=== PATIENT | male | born 1950 | race Caucasian/White ===

== ENCOUNTER 2019-05-05 10:43 | Day surgery (SDC) | payer MEDICARE, BC ==
[~2019-05-05] VITALS: Ht 177.8 cm; Wt 107.1 kg
[2019-05-05] VITALS (25 sets, daily range): BP systolic 118–156; BP diastolic 64–90; PULSE 66–89; RESP 14–25; Ht 177.8 cm; Wt 107.1 kg
[2019-05-05] MEDS: TRANEXAMIC ACID 1GM/100ML(PMX) 100 ML PRE-OP X1 IVPB ONE ×2 (08:02→08:21)
[2019-05-05] MEDS: TRANEXAMIC ACID 1GM/100ML(PMX) 100 ML INTRA-OP X1 IVPB ONE ×2 (08:21→09:55)
[~2019-05-05 10:43] MED LIST: ACETAMINOPHEN 1000MG/100ML IV 100 ML IVPB SCH; ACETAMINOPHEN 500 MG TAB PO ONE; ALBUTEROL 0.083% (NEB) 2.5 MG/3 ML AMP HHN PRN; AMLO-147 ORAL; ASPI-817 PO; BACITRACIN 50000 UNITS INJ ONE; BISACODYL 10 MG SUPP PR PRN; CARV12.579 ORAL; CEFAZOLIN 1 GM INJ ONE; CHOL100062 PO; DEXAMETHASONE 4 MG/ML 1 ML INJ IV ONE; DEXAMETHASONE 4 MG/ML 5 ML INJ ONE; DIPHENHYDRAMINE 50 MG INJ IV PRN; DOCUSATE SODIUM 100 MG CAP PO ONE; ENAL20TA ORAL; EPHEDrine 25 MG/5 ML SYG IV PRN; FENO160T13 ORAL; FENTAnyl 50 MCG/ML VIAL IV PRN; FENTAnyl 50 MCG/ML VIAL ONE; GLYCOPYRROLATE 0.4 MG INJ ONE; HYDROmorphONE 0.5 MG/0.5 ML SYG IV PRN; HYDROmorphONE 1 MG/5 ML IV SYRINGE IV PRN; IPRATROPIUM (NEB) 0.5 MG/2.5 ML AMP HHN PRN; KETAMINE (50 MG/ML) 10 ML VIAL ONE; KETOROLAC 15 MG INJ IV PRN; LABETALOL HCL 20MG INJ IV PRN; LACTATED RINGER'S 1,000 ML IV SCH; LANSOPRAZOLE 30 MG CAP PO ONE; MAGNESIUM HYDROXIDE 30ML CUP PO PRN; MEPERIDINE 25 MG INJ IV PRN; MIDAZOLAM 1 MG/ML 2 ML INJ IV PRN; MIDAZOLAM 1 MG/ML 2 ML INJ ONE; NA PHOSPHATE/BIPHOS 133 ML ENEMA PR PRN; NACL 0.9% 3 ML SYG IV SCH; NALBUPHINE HCL (10 MG/1 ML) INJ IV PRN; NALOXONE (0.4 MG/ML) INJ IV PRN; NEOSTIGMINE 3 MG/3 ML SYRINGE ONE; NITR0.4T39 SL; ONDANSETRON 4 MG INJ IV ONE; ONDANSETRON 4 MG INJ IV PRN; ONDANSETRON 4 MG INJ ONE; OXYCODONE/ACETAMINOPHEN (5/325) TAB PO PRN; PAIN COCKTAIL VANCO INJ SCH; POLYMYXIN B 500000 UNIT INJ ONE; PROPOFOL 20 ML ONE; ROCURONIUM 50 MG INJ ONE; ROPIVACAINE 0.5 % 30 ML VIAL ONE; SENNA/DOCUSATE NA (8.6MG/50MG) TAB PO PRN; SUGAMMADEX SODIUM 200 MG/2 ML VIAL IV ONE; TRANEXAMIC ACID 1GM/100ML(PMX) 200 ML ONE; TRIMETHOBENZAMIDE 100 MG/ML VIAL IM PRN; VANCOMYCIN 1 GM (PMX) 250 ML IVPB ONE; hydrALAzine 20 MG INJ IV PRN; morphine SULFATE/PF (10 MG/10 ML) INJ ONE; oxyCODONE (CR) 10 MG TAB [oxyCONTIN] PO ONE; oxyCODONE 5 MG TAB PO PRN
[2019-05-05] MEDS ORDERED: oxyCODONE 5 MG TAB PO PRN (11:00)
[2019-05-05] MEDS ORDERED: NA PHOSPHATE/BIPHOS 133 ML ENEMA PR PRN (11:00)
[2019-05-05] MEDS ORDERED: KETOROLAC 15 MG INJ IV PRN (11:00)
[2019-05-05] MEDS ORDERED: MAGNESIUM HYDROXIDE 30ML CUP PO PRN (11:00)
[2019-05-05] MEDS ORDERED: NALOXONE (0.4 MG/ML) INJ IV PRN (11:00)
[2019-05-05] MEDS ORDERED: SENNA/DOCUSATE NA (8.6MG/50MG) TAB PO PRN (11:00)
[2019-05-05] MEDS ORDERED: NACL 0.9% 3 ML SYG IV SCH (11:00)
[2019-05-05] MEDS ORDERED: BISACODYL 10 MG SUPP PR PRN (11:00)
[2019-05-05] MEDS ORDERED: ONDANSETRON 4 MG INJ IV PRN (12:30)
[2019-05-05] MEDS ORDERED: GABAPENTIN 100 MG CAP PO SCH (13:00)
[2019-05-05] MEDS: GABAPENTIN 100 MG CAP PO SCH ×2 (17:19→21:16)
[2019-05-05] MEDS: VANCOMYCIN 1 GM (PMX) 250 ML IVPB SCH (17:20)
[2019-05-05] MEDS ORDERED: VANCOMYCIN 1 GM (PMX) 250 ML IVPB SCH (18:00)
[2019-05-06 02:17] VITALS: BP 137/62; PULSE 83; RESP 18
[2019-05-06] MEDS: VANCOMYCIN 1 GM (PMX) 250 ML IVPB SCH (06:13)
[2019-05-06 08:31] VITALS: BP 125/71; PULSE 69; RESP 18
[2019-05-06] MEDS: GABAPENTIN 100 MG CAP PO SCH ×2 (08:51→13:32)
[2019-05-06] MEDS ORDERED: CELECOXIB 100 MG CAP PO SCH ×2 (09:00)
[2019-05-06] MEDS ORDERED: ASPIRIN (EC) 81 MG TAB PO SCH ×3 (09:00)
[2019-05-06] MEDS ORDERED: DOCUSATE SODIUM 100 MG CAP PO SCH ×2 (09:00)
[2019-05-06] MEDS ORDERED: AMLODIPINE 5 MG TAB PO SCH (09:00)
[2019-05-06] MEDS ORDERED: ENALAPRIL 20 MG TAB PO SCH (09:00)
[2019-05-06] MEDS ORDERED: CHOLECALCIFEROL 1,000 UNIT TAB PO SCH (09:00)
[2019-05-07] MEDS ORDERED: PANTOPRAZOLE (EC) 40 MG TAB PO SCH ×2 (06:00)
== END 2019-05-06 18:50 | disposition home or self-care (01) ==
LOC: SDS 10:43 → MS1 11:22 → SDS 05-06 18:50
PROVIDERS: ATTEND Orthopaedic Surgery Adult Reconstructive Orthopaedic Surgery
DX: M17.12 Unilateral primary osteoarthritis, left knee (principal); I10 Essential (primary) hypertension; E11.9 Type 2 diabetes mellitus without complications; Z79.82 Long term (current) use of aspirin; E78.5 Hyperlipidemia, unspecified; E66.9 Obesity, unspecified; Z68.32 Body mass index [BMI] 32.0-32.9, adult
CPT/HCPCS: 27447; 73560; 80048; 80061; 83036; 85025; 88304; 88311; 97110; 97116; 97162; 97530; C1713; C1776; J0131; J0171; J0735; J1100; J1885; J2250; J2274; J2405; J2795; J3010; J3370; J7120; J0690; J2710